=== PATIENT | female | born 1950 | race Caucasian/White ===

== ENCOUNTER → 2018-03-04 09:43 | Outpatient (CLI) | payer MEDICARE, SELFPAY ==
[2018-03-04 11:08] LABS: Hemoglobin A1C% w Est Avg Glu 5.9 % (4.0-6.0)
[2018-03-04 11:31] LABS: Alanine Aminotransferase 29 IU/L (9-52); Albumin 4.7 g/dL (3.5-5.0); Albumin Globulin Ratio 1.6 (1.0-2.8); Alkaline Phosphatase 59 U/L (38-126); Aspartate Aminotransferase 30 IU/L (14-36); BUN Creatinine Ratio 23.1 (6-22); Bilirubin Total 0.6 mg/dL (0.2-1.3); Blood Urea Nitrogen 30 mg/dL (7-17); Calcium 10.4 mg/dL (8.4-10.2); Carbon Dioxide 23 mmol/L (22-32); Chloride 109 mmol/L (98-107); Cholesterol 198 mg/dL (140-199); Estimated Glomerular Filt Rate 40.5 mL/min (>60); Glucose 112 mg/dL (80-110); HDL Cholesterol 49 mg/dL (40-60); HEMOLYSIS < 15 (0-50); LDL Cholesterol Calculated 118 mg/dL (<100); Sodium 144 mmol/L (137-145); Total Protein 7.7 g/dL (6.3-8.2); Triglycerides 155 mg/dL (35-150)
[2018-03-04 11:43] LABS: Free T3, Triiodothyronine Free 3.35 pg/mL (2.77-5.27); T4 Total Thyroxine 7.08 ug/dL (5.5-11.0)
[2018-03-04 11:56] LABS: Thyroid Stimulating Hormone 0.59 uIU/mL (0.47-4.68)
== END ==
PROVIDERS: Visit Provider Family Medicine
DX: Z00.00 Encounter for general adult medical examination without abnormal findings (principal); I10 Essential (primary) hypertension; R73.01 Impaired fasting glucose; E78.00 Pure hypercholesterolemia, unspecified
CPT/HCPCS: 36415; 80053; 80061; 83036; 84436; 84443; 84481

== ENCOUNTER → 2018-04-08 11:06 | Outpatient (CLI) | payer MEDICARE, SELFPAY ==
--- NOTE | 2018-04-08 | DI.US.S_ITS ---
PROCEDURE: US RENAL COMPLETE INDICATIONS: CHRONIC KIDNEY DISEASE STAGE III TECHNIQUE: Real-time scanning was performed of the kidneys and bladder, with image documentation. COMPARISON: None. FINDINGS: Kidneys: Left kidney is located in the left pelvis. Left kidney demonstrates malrotation. Right kidney measures 13.9 cm long; left kidney measures 8.0 cm long. Right renal cortical thickness is 1.1 cm; left renal cortical thickness is 0.9 cm. Right renal cortical echotexture is normal. Left renal cortex is echogenic. No hydronephrosis or nephrolithiasis. No suspicious solid mass lesions. Bladder: Pre-void bladder volume is 494 mL. Post-void residual is 0 mL. Pre-void images demonstrate no intraluminal masses or stones. On pre-void images, and of the right nor left ureteral jets are noted with color Doppler interrogation. (Of note, ureteral jets may not be detectable in up to 25% of cases due to insufficient differences in specific gravity between ureteral and bladder urine). Miscellaneous: No free pelvic fluid. IMPRESSION: 1. Left kidney localizes to the pelvis compatible with ectopia versus ptosis. Left kidney is atrophied with increased cortical echogenicity compatible with medical renal disease. 2. Right kidney is sonographically within normal limits. 3. No hydronephrosis. Dictated by: Franci Vail MD, PhD on 04/08/2018 at 12:09 Approved by: Franci Vail MD, PhD on 04/08/2018 at 12:14
== END ==
PROVIDERS: PCP Family Medicine; Visit Provider Student in an Organized Health Care Education/Training Program
DX: N18.3 Chronic kidney disease, stage 3 (moderate) (principal)
CPT/HCPCS: 76770

== ENCOUNTER → 2018-05-09 10:15 | Outpatient (CLI) | payer MEDICARE, SELFPAY ==
[2018-05-09 12:09] LABS: BUN Creatinine Ratio 23.6 (6-22); Blood Urea Nitrogen 26 mg/dL (7-17); Calcium 9.8 mg/dL (8.4-10.2); Carbon Dioxide 29 mmol/L (22-32); Chloride 98 mmol/L (98-107); Estimated Glomerular Filt Rate 49.1 mL/min (>60); Glucose 134 mg/dL (80-110); HEMOLYSIS < 15 (0-50); Potassium 4.2 mmol/L (3.4-5.1); Sodium 137 mmol/L (137-145)
[2018-05-09 12:26] LABS: Vitamin D 25 Hydroxy (D3) 50.3 ng/mL (30.0-100.0)
[2018-05-09 12:44] LABS: Ferritin 30.9 ng/mL (11.1-264)
[2018-05-09 17:19] LABS: Creatinine Urine Random 41.3 mg/dL; Protein (Total) Urine Random 13 mg/dL (0-12); Protein Creatinine Ratio Urine 0.31 GRAM/24H
[2018-05-10 13:49] LABS: Parathyroid Hormone Int 44 pg/mL (14-64)
== END ==
PROVIDERS: Family Provider Internal Medicine; PCP Family Medicine; Visit Provider Student in an Organized Health Care Education/Training Program
DX: I10 Essential (primary) hypertension (principal); E78.5 Hyperlipidemia, unspecified; N05.9 Unspecified nephritic syndrome with unspecified morphologic changes; E83.30 Disorder of phosphorus metabolism, unspecified; N25.81 Secondary hyperparathyroidism of renal origin; R80.9 Proteinuria, unspecified
CPT/HCPCS: 36415; 80048; 82306; 82570; 82728; 83970; 84100; 84156

== ENCOUNTER → 2018-06-03 11:19 | Outpatient (CLI) | payer MEDICARE, SELFPAY ==
--- NOTE | 2018-06-03 | DI.MG.S_ITS ---
BILATERAL DIGITAL SCREENING MAMMOGRAM 3D/2D WITH CAD: 06/03/2018 CLINICAL: Routine screening. Comparison is made to exams dated: 02/11/2017 mammogram, 11/15/2015 mammogram, and 01/02/2013 mammogram - [facility]. There are scattered fibroglandular elements in both breasts. Current study was also evaluated with a Computer Aided Detection (CAD) system. There are benign calcifications in both breasts. No significant masses, calcifications, or other findings are seen in either breast. There has been no significant interval change. IMPRESSION: There is no mammographic evidence of malignancy. A 1 year screening mammogram is recommended. This exam was interpreted at Station ID: [id number]. NOTE: For mammograms, a report in lay terms will be sent to the patient. Approximately 15% of breast malignancies will not be visualized mammographically. In the management of a palpable breast mass, a negative mammogram must not discourage biopsy of a clinically suspicious lesion. Electronically Signed By: Prasanna luther/abi:06/03/2018 12:20:51 letter sent: Normal Exam ACR BI-RADS Category 2: Benign Finding(s) 3342F
== END ==
PROVIDERS: PCP Internal Medicine; Visit Provider Internal Medicine
DX: Z12.31 Encounter for screening mammogram for malignant neoplasm of breast (principal)
CPT/HCPCS: 77063; 77067

== ENCOUNTER → 2018-06-17 12:41 | Outpatient (CLI) | payer MEDICARE, SELFPAY ==
--- NOTE | 2018-06-17 | DI.RAD.S_ITS ---
PROCEDURE: XR KNEE STANDING BI INDICATIONS: BILAT KNEE PAIN TECHNIQUE: Single standing frontal views of both knees COMPARISON: [facility], CR, XR KNEE LT 3V, 06/17/2018, 12:58. [facility], CR, XR KNEE RT 3V, 06/17/2018, 12:58. FINDINGS: Bones: No acute fractures or dislocations. There is bilateral subchondral sclerosis and scattered spurring. No definite joint space narrowing. IMPRESSION: Mild bilateral degenerative spurring. Dictated by: Howard Weinstein M.D. on 06/17/2018 at 14:16 Approved by: Howard Weinstein M.D. on 06/17/2018 at 14:17
--- NOTE | 2018-06-17 | DI.RAD.S_ITS ---
PROCEDURE: XR KNEE LT 3V INDICATIONS: BILAT KNEE PAIN TECHNIQUE: 3 views of the knee were acquired. COMPARISON: None. FINDINGS: Bones: No fractures or dislocations. No suspicious bony lesions. Degenerative subchondral sclerosis and spurring. No definite joint space narrowing Soft tissues: No joint effusion. No suspicious soft tissue calcifications. IMPRESSION: Mild left knee degenerative changes and spurring as above. If the patient's pain or other symptoms persist, consider further evaluation with MRI Dictated by: Howard Weinstein M.D. on 06/17/2018 at 14:13 Approved by: Howard Weinstein M.D. on 06/17/2018 at 14:14
--- NOTE | 2018-06-17 | DI.RAD.S_ITS ---
PROCEDURE: XR KNEE RT 3V INDICATIONS: BILAT KNEE PAIN TECHNIQUE: 3 views of the knee were acquired. COMPARISON: None. FINDINGS: Bones: No fractures or dislocations. No suspicious bony lesions. Diffuse subchondral sclerosis and spurring. Soft tissues: No joint effusion. No suspicious soft tissue calcifications. IMPRESSION: Mild degenerative changes as above. If the patient's pain or other symptoms persist, consider further evaluation with MRI Dictated by: Howard Weinstein M.D. on 06/17/2018 at 14:14 Approved by: Howard Weinstein M.D. on 06/17/2018 at 14:16
[2018-06-17 15:15] LABS: Rheumatoid Factor 13.1 IU/mL (<12.0)
[2018-06-17 15:21] LABS: C-Reactive Protein Quant < 0.5 mg/dL (<1.0)
[2018-06-19 14:07] LABS: ANA Screen, IFA Positive (Negative)
== END ==
PROVIDERS: Family Provider Physical Therapist; PCP Internal Medicine; Visit Provider Internal Medicine
DX: M25.562 Pain in left knee (principal); M25.561 Pain in right knee
CPT/HCPCS: 36415; 73562; 73565; 86038; 86140; 86200; 86430

== ENCOUNTER → 2018-11-23 09:17 | Outpatient (CLI) | payer MEDICARE, SELFPAY ==
[2018-11-23 11:04] LABS: Hematocrit 41.4 % (36-46); Hemoglobin 14.4 g/dL (12.0-16.0)
[2018-11-23 11:13] LABS: HEMOLYSIS < 15 (0-50); Iron 125 ug/dL (37-170)
[2018-11-23 11:15] LABS: Blood Urea Nitrogen 22 mg/dL (7-17); Calcium 10.3 mg/dL (8.4-10.2); Carbon Dioxide 29 mmol/L (22-32); Chloride 96 mmol/L (98-107); Cholesterol 256 mg/dL (140-199); Estimated Glomerular Filt Rate 54.8 mL/min (>60); Glucose 119 mg/dL (80-110); HDL Cholesterol 43 mg/dL (40-60); HEMOLYSIS < 15 (0-50); LDL Cholesterol Calculated 164 mg/dL (<100); Potassium 4.2 mmol/L (3.4-5.1); Sodium 138 mmol/L (137-145); Triglycerides 244 mg/dL (35-150)
[2018-11-23 11:25] LABS: Percent Iron Saturation 32 % (15-50); Total Iron Binding Capacity 385 ug/dL (265-497); Transferrin 328 mg/dL (206-381)
[2018-11-23 11:27] LABS: Creatinine Urine Random 94.3 mg/dL; Protein (Total) Urine Random 11 mg/dL (0-12); Protein Creatinine Ratio Urine 0.11 GRAM/24H
[2018-11-23 11:47] LABS: Ferritin 36.3 ng/mL (11.1-264)
== END ==
PROVIDERS: PCP Internal Medicine; Visit Provider Student in an Organized Health Care Education/Training Program
DX: N05.9 Unspecified nephritic syndrome with unspecified morphologic changes (principal); D50.0 Iron deficiency anemia secondary to blood loss (chronic); D64.9 Anemia, unspecified; E78.5 Hyperlipidemia, unspecified; N25.81 Secondary hyperparathyroidism of renal origin; R80.9 Proteinuria, unspecified
CPT/HCPCS: 36415; 80048; 80061; 82570; 82728; 83540; 83550; 84156; 85014; 85018

== ENCOUNTER → 2018-12-05 15:20 | Outpatient (CLI) | payer MEDICARE, SELFPAY ==
--- NOTE | 2018-12-05 | DI.US.S_ITS ---
PROCEDURE: US PERIPH VENOUS LOW EXTREM LT INDICATIONS: PAIN OF LEFT LOWER EXTREMITY TECHNIQUE: Real-time imaging, as well as color and pulse Doppler interrogation, were performed of the lower extremity deep veins from the inguinal ligament to the popliteal fossa. COMPARISON: None. FINDINGS: The common femoral, femoral and popliteal veins are normally compressible, and free of intraluminal thrombus. Color and pulse Doppler demonstrate normal phasic intraluminal flow. There is normal augmentation response to distal compression maneuver. IMPRESSION: No deep vein thrombosis of the left lower extremity. Dictated by: Marycarmen Manuel M.D. on 12/05/2018 at 17:15 Approved by: Marycarmen Manuel M.D. on 12/05/2018 at 17:15
== END ==
PROVIDERS: PCP Internal Medicine; Visit Provider Internal Medicine
DX: M79.605 Pain in left leg (principal)
CPT/HCPCS: 93971

== ENCOUNTER 2019-03-14 10:55 | Emergency (ER) | payer MEDICARE, SELFPAY ==
[2019-03-14 11:09] VITALS: BP 150/90; PULSE 100; RESP 16; TEMP 37; O2SAT 97
--- NOTE | 2019-03-14 11:11 | DI.RAD.S_ITS ---
PROCEDURE: XR CHEST 2V INDICATIONS: chest pain TECHNIQUE: 2 views of the chest were acquired. COMPARISON: None. FINDINGS: Surgical changes and devices: None. Lungs and pleura: Lungs are clear. No pleural effusions or pneumothorax. Mediastinum: Mediastinal contours are normal. Heart size is normal. There is aortic atherosclerosis. Bones and chest wall: No suspicious bony abnormalities. Degenerative changes of the spine and shoulders are not well characterized. Soft tissues appear unremarkable. IMPRESSION: Unremarkable chest. No acute cardiopulmonary process is evident. Dictated by: Akira Fontaine M.D. on 03/14/2019 at 11:12 Approved by: Akira Fontaine M.D. on 03/14/2019 at 11:13
[2019-03-14 11:30] VITALS: BP 145/87; PULSE 88; RESP 17; O2SAT 96
[2019-03-14 11:43] LABS: Influenza A - CEPHEID Flu A NEGATIVE (NEGATIVE); Influenza B - CEPHEID Flu B NEGATIVE (NEGATIVE)
--- NOTE | 2019-03-14 12:02 | ED.URI ---
HPI - URI/Sore Throat <Amparo Villalobos, PROJECT DEVELOPMENT COORDINATOR-BC - Last Filed: 03/14/19 13:22> General Chief Complaint: Upper Respiratory Symptoms Stated Complaint: has had a cold,chest discomfort Time Seen by Provider: 03/14/19 11:05 Source: patient Mode of arrival: Ambulatory Limitations: no limitations History of Present Illness HPI Narrative: The patient is a 69-year-old female nonsmoker with history of factor 5 [place] who presents with a chief complaint of positional left-sided chest pain, cough and fever. She states this started about 5 days ago with cold including postnasal drip. She denies any abdominal pain nausea vomiting or diarrhea. She complains of ear pressure, no sore throat. She states she did not have a flu shot this year as she had an reaction to 1 several years ago. She states that her left-sided chest pain is worse with sitting up and moving her muscles. She states that she is fine when she is lying flat. She states that she was coughing severely 3 days ago, but has improved over the past few days. She denies any sinus headaches or sinus congestion. Related Data Home Medications Medication Instructions Recorded Confirmed aspirin 81 mg PO DAILY #0 01/29/17 03/14/19 jacob peew-ivwkztft-hviuabzse ac 1 cap PO DAILY #0 01/29/17 03/14/19 [[place] [employer]] multivitamin [Multiple Vitamins] 1 tab PO DAILY #0 01/29/17 03/14/19 omega 3-hoi-faf-fish oil [Fish Oil] 1,000 mg PO DAILY #0 01/29/17 03/14/19 vitamin E 100 unit PO BID #0 01/29/17 03/14/19 Cholest 360 1 tab PO DAILY 03/14/19 03/14/19 CoQ-10 1 cap PO DAILY 03/14/19 03/14/19 acyclovir 200 mg PO DAILY 03/14/19 03/14/19 cetirizine 10 mg PO DAILY 03/14/19 03/14/19 hydrochlorothiazide 12.5 mg PO DAILY 03/14/19 03/14/19 lisinopril 10 mg PO DAILY 03/14/19 03/14/19 turmeric 1 tab PO DAILY 03/14/19 03/14/19 vitamin B complex 1 cap PO DAILY 03/14/19 03/14/19 zolpidem 10 mg PO BEDTIME 03/14/19 03/14/19 Previous Rx's Medication Instructions Recorded cyclobenzaprine 10 mg PO TID PRN #14 tab 03/14/19 Allergies Allergy/AdvReac Type Severity Reaction Status Date / Time ORANGES Allergy Unknown Uncoded 06/16/17 12:49 Review of Systems <[facility] - Last Filed: 03/14/19 13:22> Review of Systems Narrative: GENERAL: See HPI HEENT: See HPI RESPIRATORY: See HPI CARDIOVASCULAR: Denies chest pain, palpitations, orthopnea, edema, GASTROINTESTINAL: Denies nausea, vomiting, abdominal pain, diarrhea, constipation, melena. : Denies dysuria, frequency, incontinence, hematuria, urinary retention. MUSCULOSKELETAL: denies weakness, joint pain, or bony pain SKIN: Denies rash, skin lesions, or other NEUROLOGIC: Denies weakness, headache, numbness, change in speech, confusion, seizures, incoordination. PSYCHIATRIC: No concerning psychosocial issues. 12 point review of systems is negative except for those stated above Patient History <Amparo Villalobos [facility] - Last Filed: 03/14/19 13:22> Social History Smoking Status: Never smoker Smoking Status: Never smoker Exam <Amparo Villalobos [facility] - Last Filed: 03/14/19 13:22> Narrative Exam Narrative: GENERAL: This is a well-nourished, well-developed patient, in no acute distress HEAD: Atraumatic. Normocephalic. No temporal or scalp tenderness. EYES: Pupils equal round and reactive. Extraocular motions intact. No scleral icterus. No injection or drainage. ENT: Nose without bleeding, purulent drainage or septal hematoma. Throat without erythema, tonsillar hypertrophy or exudate. Uvula midline. Airway patent. Bilateral TMs pearly musa. NECK: Trachea midline. No JVD or lymphadenopathy. Supple, nontender, no meningeal signs. CARDIOVASCULAR: Regular rate and rhythm RESPIRATORY: Clear to auscultation. Breath sounds equal bilaterally. No wheezes, rales, or rhonchi. No cough. No increased respiratory effort. No accessory muscle use. Pain to palpation left upper anterior ribs. Pain on anterior posterior chest wall compression GASTROINTESTINAL: Abdomen soft, non-tender, nondistended. No hepato-splenomegaly, or palpable masses. No guarding. Active bowel sounds all 4 quadrants EXTREMITIES: No clubbing, cyanosis, or edema. No joint tenderness, effusion, or edema noted. BACK: Nontender without deformity or crepitance. No flank tenderness. NEURO: AOx3. SKIN: No rash or erythema on visible skin Initial Vital Signs Initial Vital Signs: Vital Signs Temperature 98.6 F 03/14/19 11:09 Pulse Rate 100 H 03/14/19 11:09 Respiratory Rate 16 03/14/19 11:09 Blood Pressure 150/90 H 03/14/19 11:09 Pulse Oximetry 97 03/14/19 11:09 <Kell Soto MD - Last Filed: 03/14/19 18:56> Initial Vital Signs Initial Vital Signs: Vital Signs Temperature 98.6 F 03/14/19 11:09 Pulse Rate 100 H 03/14/19 11:09 Respiratory Rate 16 03/14/19 11:09 Blood Pressure 150/90 H 03/14/19 11:09 Pulse Oximetry 97 03/14/19 11:09 Course <THOMAS Gomez - Last Filed: 03/14/19 13:22> Orders Ordered: ED Orders 03/14/19 11:05 Flu test [Influenza A & B (PCR)] Stat 03/14/19 11:11 CXR [XR chest 2V] Stat EKG-12 Lead Stat Vital Signs Vital signs: Vital Signs - 8 hr 03/14/19 11:09 03/14/19 11:30 03/14/19 12:30 Temperature 98.6 F Pulse Rate 100 H 88 78 Respiratory Rate 16 17 10 L Blood Pressure 150/90 H Blood Pressure [Left Arm] 145/87 H 144/87 H Pulse Oximetry 97 96 94 <Kell Soto MD - Last Filed: 03/14/19 18:56> Orders Ordered: ED Orders 03/14/19 11:05 Flu test [Influenza A & B (PCR)] Stat 03/14/19 11:11 CXR [XR chest 2V] Stat EKG-12 Lead Stat Vital Signs Vital signs: Vital Signs - 8 hr 03/14/19 11:09 03/14/19 11:30 03/14/19 12:30 Temperature 98.6 F Pulse Rate 100 H 88 78 Respiratory Rate 16 17 10 L Blood Pressure 150/90 H Blood Pressure [Left Arm] 145/87 H 144/87 H Pulse Oximetry 97 96 94 MDM - URI/Sore Throat <THOMAS Gomez - Last Filed: 03/14/19 13:22> Lab Data Labs: Lab Results 03/14/19 Range/Units 11:05 Influenza A (RT-PCR) Flu a negative (NEGATIVE) Influenza B (RT-PCR) Flu b negative (NEGATIVE) Imaging Data Chest x-ray: Radiologist's Impression: [address] [address] XRay Report Signed Patient: Louisa Hernandez LMR#: [id number] : 8Acct:[id number] Age/Sex: 69 / FDate of Service: 03/14/19 Loc: ED Accession Number: [id number] Procedure: XR chest 2V Ordering Provider: Amparo Villalobos PROCEDURE: XR CHEST 2V INDICATIONS: chest pain TECHNIQUE: 2 views of the chest were acquired. COMPARISON: None. FINDINGS: Surgical changes and devices: None. Lungs and pleura: Lungs are clear. No pleural effusions or pneumothorax. Mediastinum: Mediastinal contours are normal. Heart size is normal. There is aortic atherosclerosis. Bones and chest wall: No suspicious bony abnormalities. Degenerative changes of the spine and shoulders are not well characterized. Soft tissues appear unremarkable. IMPRESSION: Unremarkable chest. No acute cardiopulmonary process is evident. Dictated by: Akira Fontaine M.D. on 03/14/2019 at 11:12 Approved by: Akira Fontaine M.D. on 03/14/2019 at 11:13 ECG Data Attestation: I personally reviewed and interpreted this ECG as follows: Interpretation: Sinus rhythm. Ventricular rate 97. P.r. interval 169. QRS 110. viewed by Dr Brittany COBB Narrative Medical decision making narrative: The patient is a 69-year-old female who presents with a chief complaint of positional chest pain and chest pain on palpation along with upper respiratory infection concerns. She tests negative for the flu. Chest x-ray is not concerning for pneumonia. EKG is within normal limits. Given that her pain is reproducible with palpation, I highly suspect musculoskeletal pain, probably related to her severe coughing several days ago. She has been taking Tylenol would like to take Flexeril for this. However she does not want a dose in the emergency department and states she has some a home. She does request a prescription in case she does not have enough home. I offered several times to check her lab work regarding her renal function troponin etcetera the patient declined. I discussed at length coming back to the emergency department for any acute concerns such as concerns of heart attack or stroke. The patient states that she has felt better over the past day, but wanted to make sure she did have a pneumonia or anything like that. Encouraged her to follow up with PCP in the next few days. Patient has no questions or concerns upon discharge and states understanding of return precautions as well as follow-up care. <Kell Soto MD - Last Filed: 03/14/19 18:56> Lab Data Labs: Lab Results 03/14/19 Range/Units 11:05 Influenza A (RT-PCR) Flu a negative (NEGATIVE) Influenza B (RT-PCR) Flu b negative (NEGATIVE) Discharge Plan Departure Patient Disposition: Home Clinical Impression: Atypical chest pain Upper respiratory infection Qualifiers: URI type: unspecified viral URI Qualified Code(s): J06.9 - Acute upper respiratory infection, unspecified Discharge Date/Time: 03/14/19 12:52 Instructions: DI for Viral Upper Respiratory Infection -- Adult, DI for Atypical Chest Pain Activity Restrictions/Additional Instructions: Thank you for trusting us with your care today Your EKG has no acute abnormalities, your flu test came back negative, your chest x-ray shows no signs of pneumonia I've given you a prescription for cyclobenzaprine a muscle relaxer. Please be aware that this could be sedating. Do not take with any other sedating agents or take it and drive. Please follow-up with primary care provider the next few days Please come back to the emergency department for any acute concerns such as concern of heart attack or stroke. Please remember that we held off on lab work today, so if you have any acute concerns please come back to the emergency department. Prescriptions: New cyclobenzaprine 10 mg tablet 10 mg PO TID PRN (Reason: muscle spasm) Qty: 14 RF: 0 No Action aspirin 81 MG tablet,delayed release (DR/EC) 81 mg PO DAILY Qty: 0 RF: 0 multivitamin [Multiple Vitamins] 1 EACH tablet 1 tab PO DAILY Qty: 0 RF: 0 vitamin E 100 UNIT capsule 100 unit PO BID Qty: 0 RF: 0 omega 1-fjg-moo-fish oil [Fish Oil] 1,000 MG capsule 1,000 mg PO DAILY Qty: 0 RF: 0 [place] 1,000 mg Capsule 1 cap PO DAILY Qty: 0 RF: 0 lisinopril 20 mg tablet 10 mg PO DAILY RF: 0 acyclovir 400 mg tablet 200 mg PO DAILY RF: 0 hydrochlorothiazide 25 mg tablet 12.5 mg PO DAILY RF: 0 zolpidem 10 mg tablet 10 mg PO BEDTIME RF: 0 cetirizine 10 mg Tablet 10 mg PO DAILY RF: 0 vitamin B complex Capsule 1 cap PO DAILY RF: 0 Cholest 360 1 tab PO DAILY RF: 0 CoQ-10 1 cap PO DAILY RF: 0 turmeric 1 tab PO DAILY RF: 0 Referrals: Mar Schaefer MD [Primary Care Provider] -
[2019-03-14 12:30] VITALS: BP 144/87; PULSE 78; RESP 10; O2SAT 94
== END 2019-03-14 12:52 | disposition home or self-care (01) ==
PROVIDERS: Emergency Provider Nurse Practitioner Family; PCP Internal Medicine
DX: J06.9 Acute upper respiratory infection, unspecified (principal); R07.89 Other chest pain
CPT/HCPCS: 71046; 87502; 93005; 99283; 99285

== ENCOUNTER → 2019-04-12 08:58 | Outpatient (CLI) | payer MEDICARE, SELFPAY ==
[2019-04-12 09:56] LABS: Alanine Aminotransferase 26 IU/L (<35); Albumin 4.6 g/dL (3.5-5.0); Albumin Globulin Ratio 1.4 (1.0-2.8); Alkaline Phosphatase 63 U/L (38-126); Aspartate Aminotransferase 34 IU/L (14-36); Bilirubin Total 0.8 mg/dL (0.2-1.3); Blood Urea Nitrogen 21 mg/dL (7-17); Calcium 10.1 mg/dL (8.4-10.2); Carbon Dioxide 29 mmol/L (22-32); Chloride 98 mmol/L (98-107); Cholesterol 251 mg/dL (140-199); Estimated Glomerular Filt Rate 54.7 mL/min (>60); Globulin 3.2 g/dL (1.7-4.1); Glucose 112 mg/dL (80-110); HDL Cholesterol 40 mg/dL (40-60); HEMOLYSIS < 15 (0-50); LDL Cholesterol Calculated 175 mg/dL (<100); Sodium 138 mmol/L (137-145); Total Protein 7.8 g/dL (6.3-8.2); Triglycerides 180 mg/dL (35-150)
== END ==
PROVIDERS: PCP Internal Medicine; Referring Provider Internal Medicine; Visit Provider Internal Medicine
DX: M79.605 Pain in left leg (principal); E78.5 Hyperlipidemia, unspecified
CPT/HCPCS: 36415; 80053; 80061

== ENCOUNTER → 2019-04-20 12:22 | Outpatient (CLI) | payer MEDICARE, SELFPAY ==
[2019-04-20 15:40] LABS: D Dimer 338 ng/mL (<230)
== END ==
PROVIDERS: PCP Internal Medicine; Referring Provider Internal Medicine; Visit Provider Internal Medicine
DX: R07.1 Chest pain on breathing (principal); Z86.718 Personal history of other venous thrombosis and embolism
CPT/HCPCS: 36415; 85379

== ENCOUNTER → 2020-10-16 11:58 | Outpatient (CLI) | payer MEDICARE, SELFPAY ==
--- NOTE | 2020-10-16 12:07 | DI.MG.S_ITS ---
BILATERAL DIGITAL SCREENING MAMMOGRAM 3D/2D WITH CAD: 10/16/2020 CLINICAL: Routine screening. Comparison is made to exams dated: 06/03/2018 mammogram - [facility], 02/11/2017 mammogram, and 11/15/2015 mammogram - [facility]. There are scattered fibroglandular elements in both breasts. Current study was also evaluated with a Computer Aided Detection (CAD) system. There are benign calcifications in both breasts. No significant masses, calcifications, or other findings are seen in either breast. There has been no significant interval change. IMPRESSION: BENIGN There is no mammographic evidence of malignancy. A 1 year screening mammogram is recommended. This exam was interpreted at Station ID: [id number]. NOTE: For mammograms, a report in lay terms will be sent to the patient. Approximately 15% of breast malignancies will not be visualized mammographically. In the management of a palpable breast mass, a negative mammogram must not discourage biopsy of a clinically suspicious lesion. Electronically Signed By: Sekou Aguillon M.D., jr/abi:10/16/2020 12:34:01 letter sent: Normal Exam ACR BI-RADS Category 2: Benign Finding(s) 3342F
[2020-10-16 13:51] LABS: Free T3, Triiodothyronine Free 3.66 pg/mL (2.77-5.27)
[2020-10-16 14:05] LABS: TSH w/ Reflex to FT4 0.79 uIU/mL (0.47-4.68)
== END ==
PROVIDERS: PCP Internal Medicine; Referring Provider Internal Medicine; Visit Provider Internal Medicine
DX: Z12.31 Encounter for screening mammogram for malignant neoplasm of breast (principal); R53.82 Chronic fatigue, unspecified
CPT/HCPCS: 36415; 77063; 77067; 84443; 84481

== ENCOUNTER → 2021-10-17 10:13 | Outpatient (CLI) | payer MEDICARE, SELFPAY ==
--- NOTE | 2021-10-17 10:19 | DI.MG.S_ITS ---
BILATERAL DIGITAL SCREENING MAMMOGRAM 3D/2D WITH CAD: 10/17/2021 CLINICAL: Routine screening. Comparison is made to exams dated: 10/16/2020 mammogram, 06/03/2018 mammogram - [facility], and 02/11/2017 mammogram - [facility]. There are scattered fibroglandular elements in both breasts. Current study was also evaluated with a Computer Aided Detection (CAD) system. There are benign calcifications in both breasts. No significant masses, calcifications, or other findings are seen in either breast. There has been no significant interval change. IMPRESSION: BENIGN There is no mammographic evidence of malignancy. A 1 year screening mammogram is recommended. Based on the Tyrer Cuzick model (a risk assessment model) the patient's lifetime risk is 4.3% and her 10 year risk is 3.5%. According to the ACR, ACS, and NCCN guidelines, an annual breast MRI exam along with mammogram is recommended if the patient's lifetime risk is 20% or greater. This exam was interpreted at Station ID: [id number]. NOTE: For mammograms, a report in lay terms will be sent to the patient. Approximately 15% of breast malignancies will not be visualized mammographically. In the management of a palpable breast mass, a negative mammogram must not discourage biopsy of a clinically suspicious lesion. Electronically Signed By: Arcenio akins/abi:10/17/2021 13:00:05 letter sent: Normal Exam ACR BI-RADS Category 2: Benign Finding(s) 3342F
[2021-10-17 12:56] LABS: Free T3, Triiodothyronine Free 3.36 pg/mL (2.77-5.27)
[2021-10-17 13:10] LABS: TSH w/ Reflex to FT4 0.65 uIU/mL (0.47-4.68)
== END ==
PROVIDERS: PCP Internal Medicine; Referring Provider Internal Medicine; Visit Provider Internal Medicine
DX: Z12.31 Encounter for screening mammogram for malignant neoplasm of breast (principal); R53.82 Chronic fatigue, unspecified
CPT/HCPCS: 36415; 77063; 77067; 84443; 84481

== ENCOUNTER → 2022-11-23 11:08 | Outpatient (CLI) | payer MEDICARE, SELFPAY ==
--- NOTE | 2022-11-23 | DI.MG.S_ITS ---
BILATERAL DIGITAL SCREENING MAMMOGRAM 3D/2D WITH CAD: 11/23/2022 Comparison is made to exams dated: 10/17/2021 mammogram, 10/16/2020 mammogram, and 06/03/2018 mammogram - [facility]. There are scattered areas of fibroglandular density in both breasts (category b / 25%-50% glandular tissue). Current study was also evaluated with a Computer Aided Detection (CAD) system. There are benign calcifications in both breasts. No significant masses, calcifications, or other findings are seen in either breast. There has been no significant interval change. IMPRESSION: BENIGN There is no mammographic evidence of malignancy. A 1 year screening mammogram is recommended. Based on the Tyrer Cuzick model (a risk assessment model) the patient's lifetime risk is 4.0% and her 10 year risk is 3.6%. According to the ACR, ACS, and NCCN guidelines, an annual breast MRI exam along with mammogram is recommended if the patient's lifetime risk is 20% or greater. This exam was interpreted at Station ID: [id number]. NOTE: For mammograms, a report in lay terms will be sent to the patient. Approximately 15% of breast malignancies will not be visualized mammographically. In the management of a palpable breast mass, a negative mammogram must not discourage biopsy of a clinically suspicious lesion. Electronically Signed By: Arcenio akins/abi:11/23/2022 11:59:42 letter sent: Normal Exam ACR BI-RADS Category 2: Benign Finding(s) 3342F
--- NOTE | 2022-11-23 | DI.RAD.S_ITS ---
Bone Density Report Name: ZORAIDA BARRIGA Age: 72 Sex: Female Ethnicity: White Date of : 1950 Indication: postmenopausal; screening for osteoporosis; Referring Provider: DIANNA RIVERO Study: Bone densitometry was performed. Exam Date: November 23, 2022 Accession number: [id number] Bone Density: Region BMD T-score Z-score Classification AP Spine(L2, L3, L4) 1.366 2.6 5.1 Normal Femoral Neck (Left) 0.934 0.8 2.8 Normal Total Hip (Left) 0.989 0.4 2.2 Normal Femoral Neck (Right) 0.972 1.1 3.2 Normal Total Hip (Right) 1.030 0.7 2.5 Normal Total Hip Mean 1.010 0.6 2.4 Normal World Health Organization criteria for BMD impression classify patients as: Normal (T-score at or above -1.0), Osteopenia (T-score between -1.0 and -2.5), or Osteoporosis (T-score at or below -2.5). 10-year Fracture Risk: FRAX not reported because: All T-scores for Spine Total, Hip Total, Femoral Neck at or above -1.0 Impression: The patient has normal bone mass. Discussion: LOW RISK OF FRACTURE; BONE DENSITY IS WELL ABOVE THE MINIMUM DESIRABLE LEVEL AND ABOVE AVERAGE FOR AGE AND SEX AT ALL SKELETAL SITES TESTED. This person's bone density is above expected limits for age and sex. This is rarely clinically significant, but should be pursued if there are significant musculoskeletal complaints. The patient should follow a healthful lifestyle (good nutrition with adequate calcium and vitamin D, and appropriate weight-bearing exercise). Follow-Up: Consider repeating this study in 5 years or sooner if there is some new clinical indication. Reported by: URIEL NEUMANN M.D on 11/23/2022 3:11:00 PM.
== END ==
PROVIDERS: PCP Internal Medicine; Referring Provider Internal Medicine; Visit Provider Internal Medicine
DX: Z12.31 Encounter for screening mammogram for malignant neoplasm of breast (principal); N18.2 Chronic kidney disease, stage 2 (mild); M06.9 Rheumatoid arthritis, unspecified; Z78.0 Asymptomatic menopausal state; Z92.241 Personal history of systemic steroid therapy; Z92.23 Personal history of estrogen therapy
CPT/HCPCS: 77063; 77067; 77080